=== PATIENT | female | born 1995 | race Caucasian/White ===

== ENCOUNTER 2022-01-23 11:08 | Outpatient (CLI) | payer OTHER, SELFPAY ==
--- NOTE | ~2022-01-23 | XR_ITS ---
XR thoracic spine 3V DATE: 01/23/2022 11:40 INDICATION: Neck and back pain TECHNIQUE: AP, lateral views COMPARISON: 01/23/2022 cervical spine FINDINGS: There is slight degenerative spurring of the thoracic spine and slight levoscoliosis. No fracture or dislocation or bone destruction. The thoracic pedicles are intact. No paraspinal soft tissue thickening. IMPRESSION: Slight levoscoliosis Slight degenerative change Reviewed, dictated and finalized at location A.
--- NOTE | ~2022-01-23 | XR_ITS ---
XR lumbar spine 2-3V DATE: 01/23/2022 11:40 INDICATION: Back pain TECHNIQUE: AP, lateral, coned lateral lumbosacral views COMPARISON: None FINDINGS: There is a transitional lumbosacral vertebra with sacralization of on the left, lumbarizati on on the right. This may be a source of chronic low back pain. No fracture or bone destruction or spondylolisthesis. Lumbar and lumbosacral interspaces are well pre served. The pedicles are intact. The sacroiliac joints appear normal. IMPRESSION: Transitional first sacral vertebra Reviewed, dictated and finalized at location A.
--- NOTE | ~2022-01-23 | XR_ITS ---
XR cervical spine 4-5V DATE: 01/23/2022 11:40 INDICATION: Neck and back pain TECHNIQUE: AP, open-mouth, lateral and swimmer views COMPARISON: None FINDINGS: There is reversal cervical curvature. C1 and C2 are normally aligned and the odontoid process is intact. No fracture or dislocation or lock ed facet. No prevertebral soft tissue swelling. There is minimal loss of height at C5-6 interspace. Remaining cervical interspaces are well preserved . IMPRESSION: Reversal of cervical curvature No fracture or dislocation or locked facet Minimal loss of height at C5-6 interspace Reviewed, dictated and finalized at location A.
== END 2022-01-23 11:09 | disposition home or self-care (01) ==
PROVIDERS: PCP Family Medicine
DX: M54.9 Dorsalgia, unspecified (principal); M41.9 Scoliosis, unspecified
CPT/HCPCS: 72050; 72072; 72100

== ENCOUNTER 2023-02-18 09:00 | Outpatient (RCR) | payer OTHER, SELFPAY ==
--- NOTE | 2023-01-14 15:28 | PTOPEVAL1 ---
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 She reports pain in back over ~ 3-4 years and gradually worse after job at nursery with more lifting and activity. She has changed positions at her job to one with less lifting. Also pain increases with air brushing and leaning forward. With the evaluation, she has poor positioning of her trunk/ back with forward rotation and scoliosis of spine; with decreased trunk stabilization and strength. Tenderness and spasms over lower thoracic spine. Skilled PT services are indicted for modalities to decrease pain; therapeutic exercises and stretching to improve posture and spinal alignment. Education for home exercises and posture correction. Plan of Care Interventions Electrical Stimulation,Hot Pack/Cold Pack,Manual Therapy,Neuro Re-education,Patient Education,Therapeutic Activities,Therapeutic Exercise,Ultrasound,Other Other Interventions [facility] PT Services Indicated Yes Treatment Frequency and 1-2x/wk for 5 weeks Duration These treatments will address the objective and functional deficits as defined above
--- NOTE | 2023-01-21 09:36 | PCPTNOTE ---
Called and left patient a voicemail on 01/21/23 regarding missed appointment and left number to call back to reschedule.
--- NOTE | 2023-02-18 09:47 | PTOPDC ---
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 Reported Pain Level Pain Score Self Report Additional Pain Score Comments pain range in the past week of 0-3/10; tight, sore searing hot pain at end of day; reports problems with relaxing-- discussed hot shower, deep breathing, yoga, meditation as options increase pain: increase activity, lifting decrease pain: rest, stretching, good posture; have not use heat, ice or pain meds -- reinforced PRN use as needed. discussed that her scoliosis is a chronic condition and she must work to maintain and manage the back pain. She voiced understanding. Assessment PT Clinical Summary Ciarra has received 5 PT sessions and did not show for 1 appointment. Compared to the initial evaluation: improved in all areas: pain rating from 1-6/10 to 0-3/10; increased thoracic and trunk strength; posture awareness and positioning with lifting and activities; educated on home exercise program and self management of pain--heat, stretch, self massage with theracane massage tool, positioning with work tasks. The goals were achieved. Discharge PT services. She is to continue with the home exercises and self care to manage pain. Plan of Care PT Services Indicated No
== END 2023-02-20 09:41 | disposition home or self-care (01) ==
LOC: ANHPT 09:00
PROVIDERS: PCP Family Medicine
DX: M41.80 Other forms of scoliosis, site unspecified (principal)
CPT/HCPCS: 97110; 97140; 97161; 97530; 99199

== ENCOUNTER 2023-12-12 08:48 | Outpatient (CLI) | payer OTHER, SELFPAY ==
--- NOTE | ~2023-12-12 | US_ITS ---
Pelvic ultrasound. Clinical History: Pelvic pain Technique: Realtime transabdominal scanning of the pelvis was performed. Color flow Doppler and Doppl er spectral analysis were performed. Findings: The uterus is anteverted. The endometrial stripe has a thickness of 2 mm. No focal mass is identified. The right ovary measures 3.3 x 3.2 x 3.2 cm. No significant right ovarian or adnexal mass is seen. The left ovary measures 4.4 x 2.7 x 4.7 cm. Simple left ovarian cyst measures 3.6 cm in diameter. Vascular flow present in both ovaries on Doppler spectral analysis. There is no evidence of free fluid in the cul de sac. Impression: No evidence for torsion. 3.6 cm left ovarian cyst. Reviewed, dictated and finalized at [facility]. Impression: No evidence for torsion. 3.6 cm left ovarian cyst.
== END 2023-12-12 08:49 | disposition home or self-care (01) ==
LOC: ANHIMG 08:51
PROVIDERS: PCP Family Medicine; Visit Provider Nurse Practitioner Women's Health
DX: R10.2 Pelvic and perineal pain (principal); N83.202 Unspecified ovarian cyst, left side
CPT/HCPCS: 76856